=== PATIENT | female | born 1935 | race Caucasian/White ===

== ENCOUNTER 2018-05-23 08:25 | Emergency (ER) | payer MEDICARE ==
[2018-05-23 08:51] VITALS: RESP 18
[2018-05-23 09:06] LABS: Glucose,Whole Blood 166 mg/dL (75-99)
[2018-05-23 09:35] LABS: Basophils % (A) 0 %; Eosinophils # (A) 0.1 k/uL (0-0.7); Eosinophils % (A) 2 %; HCT 37.8 % (34.0-46.0); HGB 12.6 gm/dL (11.4-16.0); Lymphocytes # (A) 1.2 k/uL (1.0-4.8); Lymphocytes % (A) 20 %; MCH 30.9 pg (25.0-35.0); MCHC 33.3 g/dL (31.0-37.0); MCV 92.9 fL (80.0-100.0); Mean Platelet Volume 7.6; Monocytes # (A) 0.3 k/uL (0-1.0); Monocytes % (A) 5 %; Neutrophils # (A) 4.2 k/uL (1.3-7.7); Neutrophils % (A) 71 %; Platelet Count 272 k/uL (150-450); RBC 4.07 m/uL (3.80-5.40); RDW 13.5 % (11.5-15.5); WBC 5.9 k/uL (3.8-10.6)
[2018-05-23 09:50] LABS: Appearance,Urine Cloudy (Clear); Bacteria,Urine Many /hpf; Bilirubin,Urine Negative (Negative); Blood,Urine Negative (Negative); Budding Yeast,Urine Occasional /hpf; Color,Urine Light Yellow; Glucose,Urine (UA) 3+ (Negative); Ketones,Urine Negative (Negative); Leukocyte Esterase,Urine Large (Negative); Mucus,Urine Rare /hpf; Nitrite,Urine Positive (Negative); Protein,Urine Negative (Negative); RBC,Urine 6 /hpf (0-5); Specific Gravity,Urine 1.012 (1.001-1.035); Urobilinogen,Urine <2.0 mg/dL (<2.0)
[2018-05-23 09:53] LABS: Albumin 3.8 g/dL (3.5-5.0); Total Bilirubin 0.6 mg/dL (0.2-1.3); Total Protein 6.9 g/dL (6.3-8.2)
[2018-05-23 09:54] LABS: Magnesium 1.8 mg/dL (1.6-2.3); Potassium 5.3 mmol/L (3.5-5.1)
[2018-05-23 09:55] LABS: Creatine Kinase 86 U/L (30-135)
[2018-05-23 10:08] LABS: Creatine Kinase MB 0.9 ng/mL (0.0-2.4); Troponin I <0.012 ng/mL (0.000-0.034)
[2018-05-23 10:11] LABS: INR 0.9 (<1.2); Partial Thromboplastin Time 22.7 sec (22.0-30.0); Prothrombin Time 9.9 sec (9.0-12.0)
--- NOTE | 2018-05-23 10:21 | ED ---
Recheck HPI - General Chief Complaint: Recheck/Abnormal Lab/Rx Stated Complaint: low blood sugar Time Seen by Provider: 05/23/18 08:39 Source: patient, RN notes reviewed, old records reviewed Mode of arrival: EMS Limitations: no limitations - History of Present Illness Initial Comments: Patient is a 83-year-old female who presents emergency department today with daughter with complaints of low blood sugar episode. Patient apparently woke up this morning feeling very shaky complaining of chills and feeling off balance. Patient's called the daughter the daughter arrived. She seemed to have some garbled speech at that time. Inpatient negative spotter called EMS. Upon arrival EMS noted her blood sugar was low at 59. She was given an amp of glucagon. Patient's symptoms garbled speech shakiness and general feeling of well resolved afterwards. She was prescribed feeling generally well. Patient's daughter states that they recently increased her Levemir 30 units at night. She's been feeling this way on waking up a couple times since the increase of her Levemir. She denies any pains at this time. She does have a chronic indwelling Abreu catheter. Daughter also mentions that she's had occasional falls. On she apparently fell in her house. The daughter and the son and again her up. She complains of right knee pain. - Related Data Home Medications Medication Instructions Recorded Confirmed Aspirin EC [Ecotrin Low Dose] 81 mg PO DAILY 01/07/16 05/23/18 Celecoxib 200 mg PO [id number] 01/07/16 05/23/18 Indapamide [Lozol] 2.5 mg PO MOWEFR 01/07/16 05/23/18 Insulin Detemir [Levemir Flextouch] 30 units SQ HS 01/07/16 05/23/18 Metoprolol Tartrate 50 mg PO BID 01/07/16 05/23/18 Potassium Chloride ER [K-Dur 20] 20 meq PO DAILY 01/07/16 05/23/18 Raloxifene HCl 60 mg PO DAILY 01/07/16 05/23/18 Simvastatin 40 mg PO DAILY 01/07/16 05/23/18 glipiZIDE [Glipizide Xl] 10 mg PO AC-BID 01/07/16 05/23/18 metFORMIN HCL [Metformin HCl ER] 1,500 mg PO W/SUPPER 01/07/16 05/23/18 Previous Rx's Medication Instructions Recorded Cephalexin [Keflex] 500 mg PO Q6HR #28 cap 05/23/18 Allergies Allergy/AdvReac Type Severity Reaction Status Date / Time benazepril Allergy Severe Anaphylaxis Verified 05/23/18 08:59 Review of Systems ROS Statement: Those systems with pertinent positive or pertinent negative responses have been documented in the HPI. ROS Other: All systems not noted in ROS Statement are negative. Past Medical History Past Medical History: Diabetes Mellitus, Hyperlipidemia, Hypertension Additional Past Medical History / Comment(s): chronic abreu cath History of Any Multi-Drug Resistant Organisms: None Reported Past Surgical History: Bladder Surgery, Hysterectomy Past Psychological History: No Psychological Hx Reported Smoking Status: Never smoker Past Alcohol Use History: None Reported Past Drug Use History: None Reported General Exam - General Exam Comments Initial Comments: Well-appearing alert and oriented 83-year-old female. No distress. Limitations: no limitations General appearance: alert, in no apparent distress Head exam: Present: atraumatic, normocephalic, normal inspection Eye exam: Present: normal appearance, PERRL, EOMI. Absent: scleral icterus, conjunctival injection, periorbital swelling ENT exam: Present: normal exam, mucous membranes moist Neck exam: Present: normal inspection Respiratory exam: Present: normal lung sounds bilaterally. Absent: respiratory distress, wheezes, rales, rhonchi, stridor Cardiovascular Exam: Present: regular rate, normal rhythm, normal heart sounds. Absent: systolic murmur, diastolic murmur, rubs, gallop, clicks GI/Abdominal exam: Present: soft, normal bowel sounds. Absent: distended, tenderness, guarding, rebound, rigid External exam: Present: other (Indwelling Abreu catheter. She's had this for over 5 years. She has a leg bag.) Extremities exam: Present: normal inspection, full ROM, normal capillary refill. Absent: tenderness, pedal edema, joint swelling, calf tenderness Back exam: Present: normal inspection Neurological exam: Present: alert Expanded Patient oriented to: Present: person, place, time Speech: Present: fluid speech Cranial nerves: EOM's Intact: Normal Cerebellar function: Finger to Nose: Normal Upper motor neuron: Pronator Drift: Normal Sensory exam: Upper Extremity Light Touch: Normal, Lower Extremity Light Touch: Normal Motor strength exam: RUE: 5, LUE: 5, RLE: 5, LLE: 5 Eye Response: (4) open spontaneously Motor Response: (6) obeys commands Verbal Response: (5) oriented [place] Total: 15 Psychiatric exam: Present: normal affect, normal mood Skin exam: Present: warm, dry, intact, normal color. Absent: rash Course Vital Signs 05/23/18 08:41 Temperature 98.0 F Pulse Rate 100 Respiratory 18 Rate Blood Pressure 140/96 O2 Sat by Pulse 93 L Oximetry Medical Decision Making - Medical Decision Making Is 89-year-old female presents emergency Department with an episode of low blood sugar. Also states she's had a few falls in the past few weeks. At this time Patient has no neurological deficits otherwise appears well after receiving an amp of glucagon IV. Patient complains of no pain. Due to frequent falls a did do some further lab work. Checking white count and joint panels. She does have a chronic indwelling Abreu catheter that was changed [address] León's office. She does have evidence of urinary tract infection. Positive nitrates and 22 white blood cells. Her Abreu catheter was removed and new one was placed. Patient will be started on Keflex at this time. I did discuss with a low blood sugar and Patient recently increased her Levemir to 30 units at bedtime. Discussed putting her. Patient back to 20 units at bedtime until she can follow-up with Dr. Freeman. We don't Patient have further hypoglycemic episodes upon awakening. I discussed with the Patient frequent small healthy snacks. Her chest x-ray was reviewed and normal. All of her of her tests were reviewed and normal. Discussed also with the Patient that she should be ambulated a walker at all times. Her daughter states that she is embarrassed use her walker. This was reiterated to the Patient the importance of safety. Patient at this time case was discussed with Dr. Maria. He agreed with the treatment plan tinted discharge the Patient with close follow-up. Patient will be discharged with Keflex, advised use her walker as well as following up with PCP. Questions answered and return parameters were discussed. - Lab Data Result diagrams: 05/23/18 09:20 05/23/18 09:20 Lab Results 05/23/18 05/23/18 05/23/18 Range/Units 09:03 09:20 09:20 WBC 5.9 (3.8-10.6) k/uL RBC 4.07 (3.80-5.40) m/uL Hgb 12.6 (11.4-16.0) gm/dL Hct 37.8 (34.0-46.0) % MCV 92.9 (80.0-100.0) fL MCH 30.9 (25.0-35.0) pg MCHC 33.3 (31.0-37.0) g/dL RDW 13.5 (11.5-15.5) % Plt Count 272 (150-450) k/uL Neutrophils % 71 % Lymphocytes % 20 % Monocytes % 5 % Eosinophils % 2 % Basophils % 0 % Neutrophils # 4.2 (1.3-7.7) k/uL Lymphocytes # 1.2 (1.0-4.8) k/uL Monocytes # 0.3 (0-1.0) k/uL Eosinophils # 0.1 (0-0.7) k/uL Basophils # 0.0 (0-0.2) k/uL PT (9.0-12.0) sec INR (<1.2) APTT (22.0-30.0) sec Sodium (137-145) mmol/L Potassium (3.5-5.1) mmol/L Chloride (98-107) mmol/L Carbon Dioxide (22-30) mmol/L Anion Gap mmol/L BUN (7-17) mg/dL Creatinine (0.52-1.04) mg/dL Est GFR (CKD-EPI)AfAm (>60 ml/min/1.73 sqM) Est GFR (CKD-EPI)NonAf (>60 ml/min/1.73 sqM) Glucose (74-99) mg/dL POC Glucose (mg/dL) 166 H (75-99) mg/dL POC Glu Deli Cook ID Mikeanita Corinne Calcium (8.4-10.2) mg/dL Magnesium (1.6-2.3) mg/dL Total Bilirubin (0.2-1.3) mg/dL AST (14-36) U/L ALT (9-52) U/L Alkaline Phosphatase (38-126) U/L Total Creatine Kinase 86 (30-135) U/L CK-MB (CK-2) 0.9 (0.0-2.4) ng/mL CK-MB (CK-2) Rel Index 1.0 Troponin I <0.012 (0.000-0.034) ng/mL Total Protein (6.3-8.2) g/dL Albumin (3.5-5.0) g/dL Urine Color Urine Appearance (Clear) Urine pH (5.0-8.0) Ur Specific Adger (1.001-1.035) Urine Protein (Negative) Urine Glucose (UA) (Negative) Urine Ketones (Negative) Urine Blood (Negative) Urine Nitrite (Negative) Urine Bilirubin (Negative) Urine Urobilinogen (<2.0) mg/dL Ur Leukocyte Esterase (Negative) Urine RBC (0-5) /hpf Urine WBC (0-5) /hpf Urine Bacteria (None) /hpf Urine Mucus (None) /hpf Urine Yeast (Budding) (None) /hpf 05/23/18 05/23/18 05/23/18 Range/Units 09:20 09:20 09:20 WBC (3.8-10.6) k/uL RBC (3.80-5.40) m/uL Hgb (11.4-16.0) gm/dL Hct (34.0-46.0) % MCV (80.0-100.0) fL MCH (25.0-35.0) pg MCHC (31.0-37.0) g/dL RDW (11.5-15.5) % Plt Count (150-450) k/uL Neutrophils % % Lymphocytes % % Monocytes % % Eosinophils % % Basophils % % Neutrophils # (1.3-7.7) k/uL Lymphocytes # (1.0-4.8) k/uL Monocytes # (0-1.0) k/uL Eosinophils # (0-0.7) k/uL Basophils # (0-0.2) k/uL PT 9.9 (9.0-12.0) sec INR 0.9 (<1.2) APTT 22.7 (22.0-30.0) sec Sodium 140 (137-145) mmol/L Potassium 5.3 H (3.5-5.1) mmol/L Chloride 111 H (98-107) mmol/L Carbon Dioxide 21 L (22-30) mmol/L Anion Gap 8 mmol/L BUN 20 H (7-17) mg/dL Creatinine 0.82 (0.52-1.04) mg/dL Est GFR (CKD-EPI)AfAm 76 (>60 ml/min/1.73 sqM) Est GFR (CKD-EPI)NonAf 66 (>60 ml/min/1.73 sqM) Glucose 162 H (74-99) mg/dL POC Glucose (mg/dL) (75-99) mg/dL POC Glu Deli Cook ID Calcium 9.0 (8.4-10.2) mg/dL Magnesium 1.8 (1.6-2.3) mg/dL Total Bilirubin 0.6 (0.2-1.3) mg/dL AST 24 (14-36) U/L ALT 18 (9-52) U/L Alkaline Phosphatase 56 (38-126) U/L Total Creatine Kinase (30-135) U/L CK-MB (CK-2) (0.0-2.4) ng/mL CK-MB (CK-2) Rel Index Troponin I (0.000-0.034) ng/mL Total Protein 6.9 (6.3-8.2) g/dL Albumin 3.8 (3.5-5.0) g/dL Urine Color Light Yellow Urine Appearance Cloudy H (Clear) Urine pH 5.0 (5.0-8.0) Ur Specific Adger 1.012 (1.001-1.035) Urine Protein Negative (Negative) Urine Glucose (UA) 3+ H (Negative) Urine Ketones Negative (Negative) Urine Blood Negative (Negative) Urine Nitrite Positive H (Negative) Urine Bilirubin Negative (Negative) Urine Urobilinogen <2.0 (<2.0) mg/dL Ur Leukocyte Esterase Large H (Negative) Urine RBC 6 H (0-5) /hpf Urine WBC 22 H (0-5) /hpf Urine Bacteria Many H (None) /hpf Urine Mucus Rare H (None) /hpf Urine Yeast (Budding) Occasional H (None) /hpf 05/23/18 10:52 EKG performed at 1040 920 sinus rhythm with anterior fascicular. Minimal voltage criteria for LVH. Cannot rule out inferior infarct. Inferior infarct age undetermined. Abnormal EKG noted. Ventricular rate is 80 bpm. MO interval is 176 most seconds. QRS duration 80 ms. QTQTC's received 2/413 ms. - Radiology Data Radiology results: report reviewed Chest x-ray shows chronic changes without any acute process. Disposition Clinical Impression: UTI (urinary tract infection), Hypoglycemia, Falls Disposition: HOME SELF-CARE Condition: Good Instructions: Hypoglycemia in a Person with Diabetes (ED), Urinary Tract Infection in Women (ED) Additional Instructions: Patient should decrease her Levemir dose 20 units at bedtime. Take antibiotics as prescribed until we have a positive urine culture. Follow-up with your urologist is normal for Abreu cath replacement. Patient should return to the emergency department if any alarming signs or symptoms occur. Again as we discussed please use her walker at all times with ambulation. He do not want to risk falling and causing further injuries. Prescriptions: Cephalexin [Keflex] 500 mg PO Q6HR #28 cap Is patient prescribed a controlled substance at d/c from ED?: No Referrals: Frankie Freeman DO [Primary Care Provider] - 1-2 days Time of Disposition: 11:28
--- NOTE | 2018-05-23 10:37 | XR ---
EXAMINATION TYPE: XR chest 2V DATE OF EXAM: 05/23/2018 COMPARISON: NONE HISTORY: Altered mental status and hypoglycemia per technologist. Chest pain per order. TECHNIQUE: Frontal and lateral views of the chest are obtained. FINDINGS: Elevation and eventration anterior aspect right hemidiaphragm is noted. There is chronic pa renchymal change without suspicious focal air space opacity, pleural effusion, or pneumothorax seen. The cardiac silhouette size is within normal limits with atherosclerotic change in aortic knob. Th e osseous structures are demineralized. Multilevel spurring and disc space narrowing centered in the upper lumbar spine is present. IMPRESSION: Chronic changes without acute pulmonary process.
--- NOTE | 2018-05-23 10:40 | XR ---
EXAMINATION TYPE: XR knee complete RT DATE OF EXAM: 05/23/2018 CLINICAL HISTORY: Fall injury 5 days ago with pain TECHNIQUE: Three views of the right knee are obtained. COMPARISON: None. FINDINGS: Demineralization is present. There is no acute fracture/dislocation evident in RIGHT knee. There is mild to moderate tricompartment joint space loss with relative sparing of lateral tibiofemo ral compartment. Mild to moderate spurring patellofemoral compartment is seen. The overlying soft tis crista appears unremarkable. IMPRESSION: There is no acute fracture or dislocation in the right knee.
[2018-05-23 11:54] VITALS: BP 125/82; PULSE 103; TEMP 98.2
== END 2018-05-23 12:11 | disposition home or self-care (01) ==
LOC: EC 08:25
DX: E11.649 Type 2 diabetes mellitus with hypoglycemia without coma (principal); N39.0 Urinary tract infection, site not specified; E78.5 Hyperlipidemia, unspecified; I10 Essential (primary) hypertension; Z79.4 Long term (current) use of insulin; Z79.82 Long term (current) use of aspirin; Z79.899 Other long term (current) drug therapy; Z88.8 Allergy status to other drugs, medicaments and biological substances; R29.6 Repeated falls; Z91.81 History of falling
CPT/HCPCS: 36415; 51702; 71046; 80053; 81001; 82550; 82553; 83735; 84484; 85025; 85610; 85730; 87077; 87086; 87186; 93005; 99285

== ENCOUNTER → 2019-07-05 | Outpatient (CLI) | payer MEDICARE | END | disposition home or self-care (01) | LOC: LABWHC1 12:39 | PROVIDERS: ATTEND Dermatology | DX: D48.5 Neoplasm of uncertain behavior of skin (principal) | CPT/HCPCS: 36415; 82955 ==

== ENCOUNTER 2020-09-07 14:32 | Observation (INO) | payer MEDICARE ==
[2020-09-07] MEDS ORDERED: SODIUM CHLORIDE 0.9% 500 ML 500 ML IV STA (15:13)
--- NOTE | 2020-09-07 15:19 | ED ---
Weakness HPI - General Source: patient, family (son), EMS, RN notes reviewed Mode of arrival: EMS - History of Present Illness MD Complaint: generalized weakness, difficulty walking -: hour(s) (7, since waking at 0800) Location: generalized Associated Symptoms: headaches (frontal), nausea/vomiting <Efe Hopkins - Last Filed: 09/07/20 17:35> <Karlene Galicia - Last Filed: 09/09/20 12:50> - General Chief complaint: Weakness Stated complaint: Weakness, Confusion, Vomiting Time Seen by Provider: 09/07/20 14:52 - History of Present Illness Initial comments: 85-year-old white female presents to the emergency room with her son. Son states that he received a phone call from his father this morning about 8:00 stating that his mom was confused and weak. Son states he seen her yesterday and she was fine without any illness. Hamburgers for dinner last night and then ice cream before going to bed. States her sugar this morning was around 67 started giving her frosting but patient still is very weak and having difficulty sitting up complaining of a frontal headache. Son states that she did not recognize him and then at 10:00 she started to vomit, milky in color. Son states was getting her protein drink along with frosting which may be what she was vomiting.. Son states that she tried to sit up and falling to either side but could not stay sitting upright. Patient currently awake and alert 4, complaining of frontal headache. No focal motor weakness and no complaints of nausea. (Efe Hopkins) - Related Data Home Medications Medication Instructions Recorded Confirmed Aspirin EC [Ecotrin Low Dose] 81 mg PO DAILY 01/07/16 09/07/20 Celecoxib 200 mg PO DAILY 01/07/16 09/07/20 Indapamide [Lozol] 2.5 mg PO MOWEFR 01/07/16 09/07/20 Insulin Detemir [Levemir Flextouch] 20 units SQ DAILY 01/07/16 09/07/20 Metoprolol Tartrate 50 mg PO BID 01/07/16 09/07/20 Raloxifene HCl 60 mg PO DAILY 01/07/16 09/07/20 Simvastatin 40 mg PO DAILY 01/07/16 09/07/20 glipiZIDE [Glipizide Xl] 10 mg PO BID 01/07/16 09/07/20 metFORMIN HCL [Metformin HCl ER] 1,500 mg PO W/SUPPER 01/07/16 09/07/20 Acetaminophen [Tylenol Extra 500 mg PO DAILY 09/07/20 09/07/20 Strength] amLODIPine [Norvasc] 5 mg PO DAILY 09/07/20 09/07/20 Allergies Allergy/AdvReac Type Severity Reaction Status Date / Time benazepril Allergy Severe Anaphylaxis Verified 09/07/20 16:59 Review of Systems ROS Other: All systems not noted in ROS Statement are negative. <Efe Hopkins - Last Filed: 09/07/20 17:35> ROS Other: All systems not noted in ROS Statement are negative. <Karlene Galicia - Last Filed: 09/09/20 12:50> ROS Statement: Those systems with pertinent positive or pertinent negative responses have been documented in the HPI. Past Medical History Past Medical History: Diabetes Mellitus, Hyperlipidemia, Hypertension Additional Past Medical History / Comment(s): chronic abreu cath History of Any Multi-Drug Resistant Organisms: MRSA Date of last positivie culture/infection: 07/05/19 MDRO Source:: MRSA ABDOMEN Past Surgical History: Bladder Surgery, Hysterectomy Past Psychological History: No Psychological Hx Reported Smoking Status: Never smoker Past Alcohol Use History: None Reported Past Drug Use History: None Reported <Efe Hopkins - Last Filed: 09/07/20 17:35> - Past Family History Mother Family Medical History: CVA/TIA Additional Family Medical History / Comment(s): Mother had her first cva in her 30s. She lived to be 61 yrs old. Father Family Medical History: No Reported History Additional Family Medical History / Comment(s): Father was healthy and lived into his mid 80s. <Karlene Galicia - Last Filed: 09/09/20 12:50> General Exam General appearance: alert, other (slow to respond, making jokes with son and staff) Head exam: Present: atraumatic, normocephalic, normal inspection Eye exam: Present: normal appearance, PERRL, EOMI. Absent: scleral icterus, conjunctival injection, periorbital swelling ENT exam: Present: normal exam, normal oropharynx, mucous membranes dry Neck exam: Present: normal inspection, full ROM. Absent: tenderness, meningismus, lymphadenopathy, thyromegaly Respiratory exam: Present: normal lung sounds bilaterally, decreased breath sounds (left base). Absent: respiratory distress, wheezes, rales, rhonchi, stridor Cardiovascular Exam: Present: regular rate, normal rhythm, normal heart sounds. Absent: systolic murmur, diastolic murmur, rubs, gallop, clicks GI/Abdominal exam: Present: soft, normal bowel sounds. Absent: distended, tenderness, guarding, rebound, rigid, mass External exam: Present: other (indwelling abreu catheter ) Extremities exam: Present: normal inspection, full ROM, normal capillary refill. Absent: tenderness, pedal edema, joint swelling, calf tenderness Back exam: Present: full ROM. Absent: tenderness, CVA tenderness (R), CVA tenderness (L) Neurological exam: Present: alert, oriented X3, CN II-XII intact Psychiatric exam: Present: normal affect, normal mood Skin exam: Present: warm, dry, intact, normal color. Absent: rash <Efe Hopkins - Last Filed: 09/07/20 17:35> Course Vital Signs 09/07/20 09/07/20 09/07/20 14:39 16:41 18:40 Temperature 98.8 F Pulse Rate 81 86 94 Respiratory 18 18 18 Rate Blood Pressure 194/78 154/80 180/69 O2 Sat by Pulse 96 97 96 Oximetry 09/07/20 09/08/20 09/08/20 22:30 04:40 07:26 Temperature 97.6 F 97.0 F L Pulse Rate 80 82 81 Respiratory 16 18 18 Rate Blood Pressure 135/65 144/92 127/99 O2 Sat by Pulse 97 100 96 Oximetry 09/08/20 09/08/20 15:02 17:00 Temperature 97.8 F 98.7 F Pulse Rate 95 98 Respiratory 18 18 Rate Blood Pressure 124/94 140/87 O2 Sat by Pulse 97 94 L Oximetry EKG Findings - EKG Results: EKG: sinus rhythm (Ventricular rate of 79, MT interval 0.17, QRS of 0.98, QTc of 0.421), not changed from: (05/23/2018) <Efe Hopkins - Last Filed: 09/07/20 17:35> Medical Decision Making - Lab Data Result diagrams: 09/07/20 15:23 09/07/20 15:23 <Efe Hopkins - Last Filed: 09/07/20 17:35> - Lab Data Result diagrams: 09/09/20 11:16 09/09/20 11:16 <Karlene Galicia - Last Filed: 09/09/20 12:50> - Medical Decision Making Patient alert and oriented 4 at this time. Blood glucose to 122. Patient continues to have a frontal headache. Has been taking Keflex for her UTI but has failed outpatient therapy. CT negative for bleed, no midline shift and no masses. Case discussed with Dr. Galicia, will admit patient to Dr. Delcid with josephine rology on consult for the altered mental status and ataxia today, failed outpatient treatment for urinary tract infection. (Efe Hopkins) I was available for consultation in the emergency department. The history and physical exam were done by the midlevel provider. I was consulted for this patients care. I reviewed the case with the midlevel provider and based on their presentation of the patient, I agree with the assessment, medical decision making and plan of care as documented. Chart was dictated using [employer] dictation software. Attempts were made to correct any dictation errors however some typographical errors may persist. Patient was seen during a national state of emergency due to the Covid-19 pandemic. (Karlene Galicia) - Lab Data Lab Results 09/07/20 09/07/20 09/07/20 Range/Units 15:23 15:23 15:23 WBC 9.5 (3.8-10.6) k/uL RBC 4.21 (3.80-5.40) m/uL Hgb 12.4 (11.4-16.0) gm/dL Hct 37.8 (34.0-46.0) % MCV 89.9 (80.0-100.0) fL MCH 29.5 (25.0-35.0) pg MCHC 32.8 (31.0-37.0) g/dL RDW 13.0 (11.5-15.5) % Plt Count 267 (150-450) k/uL MPV 7.8 Neutrophils % 82 % Lymphocytes % 10 % Monocytes % 5 % Eosinophils % 1 % Basophils % 0 % Neutrophils # 7.8 H (1.3-7.7) k/uL Lymphocytes # 1.0 (1.0-4.8) k/uL Monocytes # 0.5 (0-1.0) k/uL Eosinophils # 0.1 (0-0.7) k/uL Basophils # 0.0 (0-0.2) k/uL PT 10.2 (9.0-12.0) sec INR 0.9 (<1.2) APTT 20.2 L (22.0-30.0) sec Sodium (137-145) mmol/L Potassium (3.5-5.1) mmol/L Chloride (98-107) mmol/L Carbon Dioxide (22-30) mmol/L Anion Gap mmol/L BUN (7-17) mg/dL Creatinine (0.52-1.04) mg/dL Est GFR (CKD-EPI)AfAm (>60 ml/min/1.73 sqM) Est GFR (CKD-EPI)NonAf (>60 ml/min/1.73 sqM) Glucose (74-99) mg/dL Estimated Ave Glu mg/dL Hemoglobin A1c (4.0-6.0) % Plasma Lactic Acid Kelvin (0.7-2.0) mmol/L Calcium (8.4-10.2) mg/dL Total Bilirubin (0.2-1.3) mg/dL AST (14-36) U/L ALT (4-34) U/L Alkaline Phosphatase (38-126) U/L Troponin I (0.000-0.034) ng/mL Total Protein (6.3-8.2) g/dL Albumin (3.5-5.0) g/dL Urine Color Light Yellow Urine Appearance Cloudy H (Clear) Urine pH 5.0 (5.0-8.0) Ur Specific [place] 1.017 (1.001-1.035) Urine Protein Trace H (Negative) Urine Glucose (UA) Negative (Negative) Urine Ketones Negative (Negative) Urine Blood Trace H (Negative) Urine Nitrite Positive H (Negative) Urine Bilirubin Negative (Negative) Urine Urobilinogen <2.0 (<2.0) mg/dL Ur Leukocyte Esterase Small H (Negative) Urine RBC 3 (0-5) /hpf Urine WBC 3 (0-5) /hpf Ur Squamous Epith Cells <1 (0-4) /hpf Urine Bacteria Many H (None) /hpf Hyaline Casts 1 (0-2) /lpf Urine Mucus Few H (None) /hpf Urine Yeast (Budding) Occasional H (None) /hpf Influenza Type A (PCR) (Not Detectd) Influenza Type B (PCR) (Not Detectd) RSV (PCR) (Not Detectd) SARS-CoV-2 (PCR) (Not Detectd) 09/07/20 09/07/20 09/07/20 Range/Units 15:23 15:23 15:23 WBC (3.8-10.6) k/uL RBC (3.80-5.40) m/uL Hgb (11.4-16.0) gm/dL Hct (34.0-46.0) % MCV (80.0-100.0) fL MCH (25.0-35.0) pg MCHC (31.0-37.0) g/dL RDW (11.5-15.5) % Plt Count (150-450) k/uL MPV Neutrophils % % Lymphocytes % % Monocytes % % Eosinophils % % Basophils % % Neutrophils # (1.3-7.7) k/uL Lymphocytes # (1.0-4.8) k/uL Monocytes # (0-1.0) k/uL Eosinophils # (0-0.7) k/uL Basophils # (0-0.2) k/uL PT (9.0-12.0) sec INR (<1.2) APTT (22.0-30.0) sec Sodium 139 (137-145) mmol/L Potassium 4.5 (3.5-5.1) mmol/L Chloride 107 (98-107) mmol/L Carbon Dioxide 22 (22-30) mmol/L Anion Gap 10 mmol/L BUN 27 H (7-17) mg/dL Creatinine 0.59 (0.52-1.04) mg/dL Est GFR (CKD-EPI)AfAm >90 (>60 ml/min/1.73 sqM) Est GFR (CKD-EPI)NonAf 83 (>60 ml/min/1.73 sqM) Glucose 122 H (74-99) mg/dL Estimated Ave Glu mg/dL Hemoglobin A1c (4.0-6.0) % Plasma Lactic Acid Kelvin 1.0 (0.7-2.0) mmol/L Calcium 9.7 (8.4-10.2) mg/dL Total Bilirubin 0.3 (0.2-1.3) mg/dL AST 24 (14-36) U/L ALT 8 (4-34) U/L Alkaline Phosphatase 91 (38-126) U/L Troponin I 0.013 (0.000-0.034) ng/mL Total Protein 6.2 L (6.3-8.2) g/dL Albumin 3.6 (3.5-5.0) g/dL Urine Color Urine Appearance (Clear) Urine pH (5.0-8.0) Ur Specific [place] (1.001-1.035) Urine Protein (Negative) Urine Glucose (UA) (Negative) Urine Ketones (Negative) Urine Blood (Negative) Urine Nitrite (Negative) Urine Bilirubin (Negative) Urine Urobilinogen (<2.0) mg/dL Ur Leukocyte Esterase (Negative) Urine RBC (0-5) /hpf Urine WBC (0-5) /hpf Ur Squamous Epith Cells (0-4) /hpf Urine Bacteria (None) /hpf Hyaline Casts (0-2) /lpf Urine Mucus (None) /hpf Urine Yeast (Budding) (None) /hpf Influenza Type A (PCR) (Not Detectd) Influenza Type B (PCR) (Not Detectd) RSV (PCR) (Not Detectd) SARS-CoV-2 (PCR) (Not Detectd) 09/07/20 09/07/20 Range/Units 15:23 16:40 WBC (3.8-10.6) k/uL RBC (3.80-5.40) m/uL Hgb (11.4-16.0) gm/dL Hct (34.0-46.0) % MCV (80.0-100.0) fL MCH (25.0-35.0) pg MCHC (31.0-37.0) g/dL RDW (11.5-15.5) % Plt Count (150-450) k/uL MPV Neutrophils % % Lymphocytes % % Monocytes % % Eosinophils % % Basophils % % Neutrophils # (1.3-7.7) k/uL Lymphocytes # (1.0-4.8) k/uL Monocytes # (0-1.0) k/uL Eosinophils # (0-0.7) k/uL Basophils # (0-0.2) k/uL PT (9.0-12.0) sec INR (<1.2) APTT (22.0-30.0) sec Sodium (137-145) mmol/L Potassium (3.5-5.1) mmol/L Chloride (98-107) mmol/L Carbon Dioxide (22-30) mmol/L Anion Gap mmol/L BUN (7-17) mg/dL Creatinine (0.52-1.04) mg/dL Est GFR (CKD-EPI)AfAm (>60 ml/min/1.73 sqM) Est GFR (CKD-EPI)NonAf (>60 ml/min/1.73 sqM) Glucose (74-99) mg/dL Estimated Ave Glu mg/dL 165.68 Hemoglobin A1c 7.4 H (4.0-6.0) % Plasma Lactic Acid Kelvin (0.7-2.0) mmol/L Calcium (8.4-10.2) mg/dL Total Bilirubin (0.2-1.3) mg/dL AST (14-36) U/L ALT (4-34) U/L Alkaline Phosphatase (38-126) U/L Troponin I (0.000-0.034) ng/mL Total Protein (6.3-8.2) g/dL Albumin (3.5-5.0) g/dL Urine Color Urine Appearance (Clear) Urine pH (5.0-8.0) Ur Specific [place] (1.001-1.035) Urine Protein (Negative) Urine Glucose (UA) (Negative) Urine Ketones (Negative) Urine Blood (Negative) Urine Nitrite (Negative) Urine Bilirubin (Negative) Urine Urobilinogen (<2.0) mg/dL Ur Leukocyte Esterase (Negative) Urine RBC (0-5) /hpf Urine WBC (0-5) /hpf Ur Squamous Epith Cells (0-4) /hpf Urine Bacteria (None) /hpf Hyaline Casts (0-2) /lpf Urine Mucus (None) /hpf Urine Yeast (Budding) (None) /hpf Influenza Type A (PCR) Not Detected (Not Detectd) Influenza Type B (PCR) Not Detected (Not Detectd) RSV (PCR) Not Detected (Not Detectd) SARS-CoV-2 (PCR) Not Detected (Not Detectd) Disposition Decision Date: 09/07/20 Decision Time: 17:00 <Efe Hopkins - Last Filed: 09/07/20 17:35> <Karlene Galicia - Last Filed: 09/09/20 12:50> Clinical Impression: Failure of outpatient treatment, TIA (transient ischemic attack), Hypoglycemia Disposition: ADMITTED IP TO THIS HOSP Condition: Fair
[2020-09-07 15:32] LABS: Basophils % (A) 0 %; Eosinophils # (A) 0.1 k/uL (0-0.7); Eosinophils % (A) 1 %; HCT 37.8 % (34.0-46.0); HGB 12.4 gm/dL (11.4-16.0); Lymphocytes % (A) 10 %; MCH 29.5 pg (25.0-35.0); MCHC 32.8 g/dL (31.0-37.0); MCV 89.9 fL (80.0-100.0); Mean Platelet Volume 7.8; Monocytes # (A) 0.5 k/uL (0-1.0); Monocytes % (A) 5 %; Neutrophils # (A) 7.8 k/uL (1.3-7.7); Neutrophils % (A) 82 %; Platelet Count 267 k/uL (150-450); RBC 4.21 m/uL (3.80-5.40); WBC 9.5 k/uL (3.8-10.6)
[2020-09-07 15:41] LABS: Appearance,Urine Cloudy (Clear); Bacteria,Urine Many /hpf; Bilirubin,Urine Negative (Negative); Blood,Urine Trace (Negative); Budding Yeast,Urine Occasional /hpf; Color,Urine Light Yellow; Glucose,Urine (UA) Negative (Negative); Hyaline Casts,Urine 1 /lpf (0-2); Ketones,Urine Negative (Negative); Leukocyte Esterase,Urine Small (Negative); Mucus,Urine Few /hpf; Nitrite,Urine Positive (Negative); Protein,Urine Trace (Negative); RBC,Urine 3 /hpf (0-5); Specific Gravity,Urine 1.017 (1.001-1.035); Squamous Epithelial Cell,Urine <1 /hpf (0-4); Urobilinogen,Urine <2.0 mg/dL (<2.0); WBC,Urine 3 /hpf (0-5)
[2020-09-07 15:42] LABS: ALT 8 U/L (4-34); AST 24 U/L (14-36); African American GFR (CKD) >90 (>60 ml/min/1.73 sqM); Albumin 3.6 g/dL (3.5-5.0); Alkaline Phosphatase 91 U/L (38-126); Anion Gap 10 mmol/L; Blood Urea Nitrogen 27 mg/dL (7-17); Calcium 9.7 mg/dL (8.4-10.2); Carbon Dioxide 22 mmol/L (22-30); Chloride 107 mmol/L (98-107); Glucose 122 mg/dL (74-99); Non-African American GFR(CKD) 83 (>60 ml/min/1.73 sqM); Potassium 4.5 mmol/L (3.5-5.1); Sodium 139 mmol/L (137-145); Total Bilirubin 0.3 mg/dL (0.2-1.3); Total Protein 6.2 g/dL (6.3-8.2)
[2020-09-07 15:54] LABS: INR 0.9 (<1.2); Partial Thromboplastin Time 20.2 sec (22.0-30.0); Prothrombin Time 10.2 sec (9.0-12.0)
--- NOTE | 2020-09-07 16:12 | CT ---
EXAMINATION TYPE: CT brain wo con DATE OF EXAM: 09/07/2020 COMPARISON: None HISTORY: Weakness, vomiting. Pt had to be rescanned due to motion. CT DLP: 2342.4 mGycm Automated exposure control for dose reduction was used. There is cerebral cortical atrophy. There is hypodensity in the periventricular white matter. There i s no mass effect nor midline shift. There is no sign of intracranial hemorrhage. Calvarium is intact. The skull base is intact. There is normal aeration of the mastoid sinuses. IMPRESSION: Cerebral atrophy and chronic small vessel ischemia. No acute intracranial abnormality.
--- NOTE | 2020-09-07 16:23 | XR ---
EXAMINATION TYPE: XR chest 2V DATE OF EXAM: 09/07/2020 COMPARISON: 05/23/2018 HISTORY: Mental status TECHNIQUE: 2 views FINDINGS: There is no heart failure nor confluent pneumonic infiltrate. Costophrenic angles are clear . There are no hilar masses. Thoracic aorta is atheromatous. There is spurring in the thoracic spine. IMPRESSION: No active cardiopulmonary disease. No change.
[2020-09-07] MEDS ORDERED: NALOXONE 0.4 MG/ML 1 ML VIAL IV PRN (16:50)
[2020-09-07] MEDS ORDERED: ACETAMINOPHEN TAB 325 MG TAB PO PRN (16:56)
[2020-09-08] MEDS ORDERED: LORazepam 2 MG/ML INJ IV STA (01:43)
--- NOTE | 2020-09-08 12:55 | P.CNNES ---
History of Present Illness Consult date: 09/08/20 Requesting physician: Efe Hopkins Reason for Consult: TIA History of Present Illness: Patient is a 85-year-old female came to the ER by ambulance yesterday at 2:32 PM. Patient not able to provide any history. Per EMS flow sheet, patient was complaining of weakness, nausea and altered mental status since 7 AM. Patient answered most of the questions appropriately but took her a while to answer. Patient had acute weakness and confusion when she woke up and had 3 episodes of emesis since then. Her blood sugar was slightly low 60. Patient was unable to sit up straight, continues to lean towards the right. Patient was very dizzy when she sits up. Patient's blood pressure was 179/84 pulse rate 103, saturation 95% and blood sugar 158. Vital signs on arrival blood pressure 194/78, pulse rate 81, temperature 98.8. Most recent blood pressure 127/99. CT head showed cerebral atrophy and chronic small vessel ischemia. No acute intracranial abnormality. Chest x-ray showed no active cardiopulmonary disease. EKG normal sinus rhythm, incomplete right bundle branch block, left anterior fascicular block. Moderate voltage criteria for LVH. Patient has diabetes, on glipizide, Celebrex 200 mg daily, aspirin 81 mg, simvastatin 40 mg, amlodipine 5 mg metformin, insulin metoprolol and Raloxifine. Patient very confused, somewhat restless, delirious, not able to provide any history. Patient states that she lives with her father who is 34 or 35 years of age. She thinks herself as 9 years old. Please refer to examination below. Review of Systems Denies headache. ROS unobtainable: due to mental status Past Medical History Past Medical History: Diabetes Mellitus, Hyperlipidemia, Hypertension Additional Past Medical History / Comment(s): chronic abreu cath History of Any Multi-Drug Resistant Organisms: MRSA Date of last positivie culture/infection: 07/05/19 MDRO Source:: MRSA ABDOMEN Past Surgical History: Bladder Surgery, Hysterectomy Past Psychological History: No Psychological Hx Reported Smoking Status: Never smoker Past Alcohol Use History: None Reported Past Drug Use History: None Reported - Past Family History Mother Family Medical History: CVA/TIA Additional Family Medical History / Comment(s): Mother had her first cva in her 30s. She lived to be 61 yrs old. Father Family Medical History: No Reported History Additional Family Medical History / Comment(s): Father was healthy and lived into his mid 80s. Medications and Allergies Home Medications Medication Instructions Recorded Confirmed Type Aspirin EC [Ecotrin Low Dose] 81 mg PO DAILY 01/07/16 09/07/20 History Celecoxib 200 mg PO DAILY 01/07/16 09/07/20 History Indapamide [Lozol] 2.5 mg PO MOWEFR 01/07/16 09/07/20 History Metoprolol Tartrate 50 mg PO BID 01/07/16 09/07/20 History Raloxifene HCl 60 mg PO DAILY 01/07/16 09/07/20 History Simvastatin 40 mg PO DAILY 01/07/16 09/07/20 History amLODIPine [Norvasc] 5 mg PO DAILY 09/07/20 09/07/20 History Acetaminophen Tab [Tylenol] 650 mg PO Q6HR PRN tab 09/09/20 Rx Cefuroxime Axetil [Ceftin] 500 mg PO BID 1 Days #8 tab 09/09/20 Rx INSULIN LISPRO (HumaLOG) [humaLOG] 0 unit SQ ACHS #1 vial 09/09/20 Rx Insulin Detemir (Levemir) [Levemir] 5 unit SQ HS syr 09/09/20 Rx Insulin Detemir (Levemir) [Levemir] 10 unit SQ DAILY@0700 syr 09/09/20 Rx QUEtiapine [SEROquel] 25 mg PO HS #1 tab 09/09/20 Rx Allergies Allergy/AdvReac Type Severity Reaction Status Date / Time benazepril Allergy Severe Anaphylaxis Verified 09/07/20 16:59 Physical Examination - Vital Signs Vital Signs: Vital Signs Temp Pulse Resp BP Pulse Ox 09/08/20 07:26 97.0 F L 81 18 127/99 96 09/08/20 04:40 82 18 144/92 100 09/07/20 22:30 97.6 F 80 16 135/65 97 09/07/20 18:40 94 18 180/69 96 09/07/20 16:41 86 18 154/80 97 09/07/20 14:39 98.8 F 81 18 194/78 96 Intake and Output 09/07/20 09/08/20 09/08/20 22:59 06:59 14:59 Other: Voiding Method Indwelling Catheter On examination patient is an elderly female, who is laying in the bed, slightly restless, trying to get up, not able to get up by herself. Patient knows her name states is "9 years old". States she cannot remember her age. Patient knows that she is in [place] could not tell the city she lives in. She states that she lives in [facility]. She doesn't know what building we are in. Patient could not tell the current month or the year. When I asked about president, states "Oh! that's easy". Then states "can't think of it now". And I give her choices, patient could not recognize Mr. Zaldivar. When I said [place] then, she stated "maybe". Her limited speech appears clear. She states that she lives with her father who is 34 or 35 years of age. Patient has a very prolonged latency time to answer questions. On cranial nerve examination pupils are round and reacting to light, visual gipson are full on confrontation, extraocular muscles are intact. She has mild flattening of the left nasolabial fold but on active testing appeared normal. Tongue protrudes the midline. Palatal elevation is normal, hearing is slightly decreased, shoulder shrug normal. Facial sensations normal. On muscle strength testing patient has weakness of bilateral shoulders, right slightly worse than left. Uncertain if patient has underlying rotator cuff issue or some central cause. Her biceps, triceps and document processor are normal. Strength is normal in the lower limbs. Sensations are equal. Patient appears ataxic for [id number], right more than left. Patient did not cooperate for [id number] testing. Reflexes are 2 in the right upper limb, 1+ in the left upper limb. Knees are 1+ and ankles 1 bilaterally plantars are downgoing. No clonus. Tone and bulk of muscles normal. Gait deferred. On general examination there is no obvious bruit, S1 and S2 audible, abdomen soft nontender. Chest is clear. Peripheral pulses present. No peripheral edema. Results - Laboratory Findings CBC and BMP: 09/09/20 11:16 09/09/20 11:16 Abnormal Lab Findings: Abnormal Labs 09/07/20 09/07/20 09/07/20 15:23 15:23 15:23 Neutrophils # 7.8 H APTT 20.2 L BUN Glucose Total Protein Urine Appearance Cloudy H Urine Protein Trace H Urine Blood Trace H Urine Nitrite Positive H Ur Leukocyte Esterase Small H Urine Bacteria Many H Urine Mucus Few H Urine Yeast (Budding) Occasional H 09/07/20 15:23 Neutrophils # APTT BUN 27 H Glucose 122 H Total Protein 6.2 L Urine Appearance Urine Protein Urine Blood Urine Nitrite Ur Leukocyte Esterase Urine Bacteria Urine Mucus Urine Yeast (Budding) Assessment and Plan Assessment: * Altered mental status, generalized weakness, uncertain cause. On examination patient appears slightly delirious, restless, is alert and awake, but quite disoriented. Patient has possible ataxia for [id number] testing, right more than left, rule out cerebellar CVA. Patient came with mild hypoglycemia with blood glucose of 60. Also has possible UTI * Diabetes * Hypertension * Hyperlipidemia * Probable underlying cognitive impairment Plan: * MRI of the brain rule out CVA. * Patient's last hemoglobin A1c 7.9 on 06/06/2020. * Lipid panel with cholesterol 147, LDL 69, HDL 46 and triglycerides 158. Continue statins. * Carotid Doppler * 2-D echo * Telemetry monitoring * B12, folate, B1, TSH. * Continue aspirin * We will follow.
--- NOTE | 2020-09-08 14:02 | US ---
EXAMINATION TYPE: US carotid duplex BILAT DATE OF EXAM: 09/08/2020 COMPARISON: NONE CLINICAL HISTORY: Possible CVA, weakness. Poor historian EXAM MEASUREMENTS: RIGHT: Peak Systolic Velocity (PSV) cm/sec ----- Right CCA: 68.0 ----- Right ICA: 68.0 ----- Right ECA: 143.6 ICA/CCA ratio: 1.0 RIGHT: End Diastole cm/sec ----- Right CCA: 10.9 ----- Right ICA: 7.6 ----- Right ECA: 9.5 LEFT: Peak Systolic Velocity (PSV) cm/sec ----- Left CCA: 66.9 ----- Left ICA: 96.9 ----- Left ECA: 108.1 ICA/CCA ratio: 1.4 LEFT: End Diastole cm/sec ----- Left CCA: 0.0 ----- Left ICA: 16.7 ----- Left ECA: 0.0 VERTEBRALS (direction of flow): Right Vertebral: Antegrade Left Vertebral: Antegrade Rhythm: Normal Bilateral wall thickening. Plaque seen in bilateral carotids. Elevated right ECA. IMPRESSION: 1. Bilateral atherosclerotic plaque with no significant hemodynamic stenosis. Criteria for Assigning % of Stenosis / Diameter reduction (Estimation based on the indirect measurements of the internal carotid artery velocities (ICA PSV). 1. Normal (no stenosis)=ICA PSV < 125 cm/s: ratio < 2.0: ICA EDV<40 cm/s. 2. Less than 50% stenosis=ICA PSV < 125 cm/s: ratio < 2.0: ICA EDV<40 cm/s. 3. 50 to 69% stenosis=ICA PSV of 125 to 230 cm/s: ration 2.0 ? 4.0: ICA EDV 40-100 cm/s. 4. Greater than 70% stenosis to near occlusion= ICA PSV > 230 cm/s: ratio > 4.0: ICA EDV > 100 cm/s. 5. Near occlusion= ICA PSV velocities may be low or undetectable: variable ratio and ICA EDV. 6. Total occlusion=unable to detect flow.
[2020-09-08] MEDS: ASPIRIN 81 MG PO SCH ×3 (15:19→16:53)
[2020-09-08] MEDS: ATORVASTATIN 20 MG TAB PO SCH ×4 (15:19→16:53)
[2020-09-08 15:53] LABS: Glucose,Whole Blood 161 mg/dL (75-99)
[2020-09-08] MEDS: SODIUM CHLORIDE 0.9% 1,000 ML IV SCH (16:48)
--- NOTE | 2020-09-08 17:12 | P.HPIM ---
History of Present Illness H&P Date: 09/08/20 Chief Complaint: Weakness, confusion, nausea This is an 85-year-old female with past medical history of diabetes mellitus, hypertension, hyperlipidemia, dementia, urinary retention with chronic Abreu catheter last changed August 2020-, UTI, arthritis and multiple other medical issues brought in by EMS with complaints of weakness nausea, vomiting, confusion. ER reports family stated a.m. blood sugar is 67, attempted to give patient frosting, difficulty sitting upright, complaining of frontal headache, milky emesis( possibly her protein drink). Patient did not recognize son. Complained of dizziness, Blood sugar was 60 (EMS), hypertensive with mild tachycardia,, O2 sat 95% on room air. Brain CT reported No acute intracranial abnormality. Chest x-ray reported no active cardiopulmonary disease. EKG normal sinus rhythm, incomplete right bundle branch block, left anterior fascicular block. Patient is a vague historian, alert and oriented to person only-reports she is at home. staff reports patient confused, crawling out of bed/stretcher during the night. Hemat ology, coagulation, chemistry panel is unremarkable with the exception of neutrophil 7.8, APTT 20.2, BUN 27, total protein 6.2. UA reported occasional yeast, many bacteria, 1 hyaline cast, small leukocytes negative bilirubin. Influenza A/B/covid not detected. Afebrile. Review of Systems Review of systems unable to obtain secondary to patient's current mental status. Past Medical History Past Medical History: Diabetes Mellitus, Hyperlipidemia, Hypertension Additional Past Medical History / Comment(s): IDDM type II, decreased cognitive ability over approximately one year/pt fearful of needles/blood/anything that might hurt, urinary retention/chronic abreu catheter past 7 years/changed monthly and last changed in August 2020, incontinence of stool, generalized arthritis, dry cough History of Any Multi-Drug Resistant Organisms: MRSA Date of last positivie culture/infection: 07/05/19 MDRO Source:: MRSA ABDOMEN Past Surgical History: Back Surgery, Bladder Surgery, Hysterectomy Additional Past Surgical History / Comment(s): Cystoscopies/ IDC insertion, colonoscopy, low back surgery when young, periodontal procedures. Past Anesthesia/Blood Transfusion Reactions: No Reported Reaction Smoking Status: Never smoker - Past Family History Mother Family Medical History: CVA/TIA Additional Family Medical History / Comment(s): Mother had her first cva in her 30s. She lived to be 61 yrs old. Father Family Medical History: No Reported History Additional Family Medical History / Comment(s): Father was healthy and lived into his mid 80s. Medications and Allergies Home Medications Medication Instructions Recorded Confirmed Type Aspirin EC [Ecotrin Low Dose] 81 mg PO DAILY 01/07/16 09/07/20 History Celecoxib 200 mg PO DAILY 01/07/16 09/07/20 History Indapamide [Lozol] 2.5 mg PO MOWEFR 01/07/16 09/07/20 History Insulin Detemir [Levemir Flextouch] 20 units SQ DAILY 01/07/16 09/07/20 History Metoprolol Tartrate 50 mg PO BID 01/07/16 09/07/20 History Raloxifene HCl 60 mg PO DAILY 01/07/16 09/07/20 History Simvastatin 40 mg PO DAILY 01/07/16 09/07/20 History glipiZIDE [Glipizide Xl] 10 mg PO BID 01/07/16 09/07/20 History metFORMIN HCL [Metformin HCl ER] 1,500 mg PO W/SUPPER 01/07/16 09/07/20 History Acetaminophen [Tylenol Extra 500 mg PO DAILY 09/07/20 09/07/20 History Strength] amLODIPine [Norvasc] 5 mg PO DAILY 09/07/20 09/07/20 History Allergies Allergy/AdvReac Type Severity Reaction Status Date / Time benazepril Allergy Severe Anaphylaxis Verified 09/07/20 16:59 Physical Exam Vitals: Vital Signs Temp Pulse Resp BP Pulse Ox 09/08/20 15:02 97.8 F 95 18 124/94 97 09/08/20 07:26 97.0 F L 81 18 127/99 96 09/08/20 04:40 82 18 144/92 100 09/07/20 22:30 97.6 F 80 16 135/65 97 09/07/20 18:40 94 18 180/69 96 09/07/20 16:41 86 18 154/80 97 Intake and Output 09/08/20 09/08/20 09/08/20 06:59 14:59 22:59 Output Total 550 200 Balance -550 -200 Output: Urine 550 200 Other: Voiding Method Indwelling Catheter Weight 56.699 kg PHYSICAL EXAM: VITAL SIGNS: As above GENERAL: Confused, restless, hospital gown half off, sitting up on stretcher. Slow response to questions. HEENT: Conjunctivae normal. eyes normal. Tongue midline. No facial asymmetry. NECK: No JVD. No thyroid enlargement. No LNs CARDIOVASCULAR: S1, S2 regular.No murmur RESPIRATION: Breath sounds diminished in the bases. No rhonchi or crackles. No bronchial breathing. ABDOMEN: Soft, nontender . No guarding. no masses palpable. No ascites, No hepatosplenomegaly.Bowel sounds heard. LEGS: No edema. no swelling. No calf tenderness PSYCHIATRY: Alert and oriented X1, confused NERVOUS SYSTEM: Ataxic ,Moves all 4 limbs. Diffuse weakness, Strength and sensation grossly intact. Skin: no lesions, warm and dry Lymphatic system. No LN neck axilla. Results CBC & Chem 7: 09/07/20 15:23 09/07/20 15:23 Labs: Abnormal Lab Results - Last 24 Hours (Table) 09/08/20 Range/Units 15:52 POC Glucose (mg/dL) 161 H (75-99) mg/dL Thrombosis Risk Factor Assmnt - Choose All That Apply Any of the Below Risk Factors Present?: Yes Other Risk Factors: Yes Each Risk Factor Represents 3 Points: Age 75 years or older Other congenital or acquired thrombophilia - If yes, enter type in comment: No Thrombosis Risk Factor Assessment Total Risk Factor Score: 3 Thrombosis Risk Factor Assessment Level: Moderate Risk Assessment and Plan Assessment: -Confusion, delirium, altered mental status,Acute metabolic encephalopathy accompanied by generalized weakness, etiology unclear. Diabetes mellitus II, hypoglycemia per EMS and family report Possible recurrent UTI, related to urinary retention, chronic Abreu catheter. Abreu catheter ordered to be changed. Hypertension, uncontrolled on admission Hyperlipidemia Dementia, type unclear, incontinent of urine and bowel movement. Plan: Continue on current medication regime ,monitoring and symptomatic treatment. Continue on aspirin, statin, PPI. Compression stockings. IV fluid hydration Neurology consult in place with recommendations pending. PT/OT/social work consult for potential placement/assistance. Prognosis guarded given multiple complex medical issues. The impression and plan of care has been dictated as directed. : I performed a history and examination of this patient, discussed the same with the dictator. I agree with the dictator's note ,documented as a scribe. Any additional findings or plans will be noted.
[2020-09-08] MEDS: PANTOPRAZOLE 40 MG/10 ML VIAL IVP SCH (17:55)
[2020-09-08 21:28] LABS: Folate, Serum 19.6 ng/mL
[2020-09-09 03:47] LABS: Estimated Average Glucose 165.68; Hemoglobin A1C 7.4 % (4.0-6.0)
[2020-09-09] MEDS: SODIUM CHLORIDE 0.9% 1,000 ML IV SCH ×3 (05:36→22:33)
[2020-09-09] MEDS ORDERED: OLANZapine 10 MG VIAL IM PRN (07:07)
--- NOTE | 2020-09-09 07:58 | ECHOF ---
Referral Reason:Possible CVA, weakness MEASUREMENTS -------- HEIGHT: 157.5 cm WEIGHT: 56.7 kg BP: IVSd: 1.2 cm (0.6 - 1.1) LVIDd: 3.8 cm (3.9 - 5.3) LVPWd: 1.3 cm (0.6 - 1.1) IVSs: 1.5 cm LVIDs: 2.5 cm LVPWs: 1.6 cm LA Diam: 4.0 cm (2.7 - 3.8) Ao Diam: 3.1 cm (2.0 - 3.7) AV Cusp: 2.2 cm (1.5 - 2.6) LA Diam: 3.8 cm (2.7 - 3.8) MV EXCURSION: 10.759 mm (> 18.000) MV EF SLOPE: 41 mm/s (70 - 150) EPSS: 0.4 cm MV E Eliseo: 0.44 m/s MV DecT: 264 ms MV A Eliseo: 1.18 m/s MV E/A Ratio: 0.37 FINDINGS -------- Sinus rhythm. This was a technically adequate study. The left ventricular size is normal. Left ventricular wall thickness is normal. Overall left vent ricular systolic function is normal with, an EF between 55 - 60 %. The right ventricle is normal in size. The left atrium is mildly dilated. The right atrial size is normal. There is mild aortic valve sclerosis. The mitral valve is normal. Mild mitral regurgitation is present. The tricuspid valve appears structurally normal. Mild tricuspid regurgitation present. Right vent ricular systolic pressure is normal at < 35 mmHg. There is no pulmonic regurgitation present. The aortic root size is normal. There is a small, generalized pericardial effusion present. CONCLUSIONS -------- 1. Left ventricular wall thickness is normal. 2. Overall left ventricular systolic function is normal with, an EF between 55 - 60 %. 3. The left atrium is mildly dilated. 4. There is mild aortic valve sclerosis. 5. Mild mitral regurgitation is present. 6. Mild tricuspid regurgitation present. 7. There is a small, generalized pericardial effusion present. GOLD BLOWER: Padmini Dunham RDCS
[2020-09-09] MEDS: ASPIRIN 81 MG PO SCH (07:59)
[2020-09-09] MEDS: PANTOPRAZOLE 40 MG/10 ML VIAL IVP SCH (07:59)
[2020-09-09] MEDS: ATORVASTATIN 20 MG TAB PO SCH (07:59)
[2020-09-09] MEDS ORDERED: amLODIPine 5 MG TAB PO SCH (09:45)
[2020-09-09] MEDS: INSULIN DETEMIR (LEVEMIR) 100 UNIT/ML SYR SQ SCH (10:43)
[2020-09-09] MEDS: METOPROLOL TARTRATE 50 MG TAB PO SCH ×2 (10:43→20:24)
--- NOTE | 2020-09-09 11:13 | P.PN ---
Subjective Progress Note Date: 09/09/20 This is an 85-year-old female with past medical history of diabetes mellitus, hypertension, hyperlipidemia, dementia, urinary retention with chronic Braswell catheter last changed August 2020-, UTI, arthritis and multiple other medical issues brought in by EMS with complaints of weakness nausea, vomiting, conf usion. ER reports family stated a.m. blood sugar is 67, attempted to give patient frosting, difficulty sitting upright, complaining of frontal headache, milky emesis( possibly her protein drink). Patient did not recognize son. Complained of dizziness, Blood sugar was 60 (EMS), hypertensive with mild tachycardia,, O2 sat 95% on room air. Brain CT reported No acute intracranial abnormality. Chest x-ray reported no active cardiopulmonary disease. EKG normal sinus rhythm, incomplete right bun dle branch block, left anterior fascicular block. Patient is a vague historian, alert and oriented to person only-reports she is at home. staff reports patient confused, crawling out of bed/stretcher during the night. Hematology, coagulation, chemistry panel is unremarkable with the exception of neutrophil 7.8, APTT 20.2, BUN 27, total protein 6.2. UA reported occasional yeast, many bacteria, 1 hyaline cast, small leukocytes negative bilirubin. Influenza A/B/covid not detected. Afebrile. 09/09/2020 UA reporting positive nitrate, urine culture ordered. Rocephin to be initiated empirically after culture is collected. 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 Sitting up in bed, eating breakfast, calm. Reports she is in the hospital, but doesn't know why she is here, recognizes Dr. Freeman. Evaluated by neurology with recommendations noted and appreciated. Neuro workup in progress including MRI. Denies chest pain, palpitations or shortness of breath. Afebrile, labs pending. Objective - Vital Signs Vital signs: Vital Signs Temp 97.8 F 09/09/20 07:20 Pulse 86 09/09/20 07:20 Resp 14 09/09/20 07:20 BP 161/76 09/09/20 07:20 Pulse Ox 94 L 09/09/20 07:20 Intake & Output 09/08/20 09/09/20 09/09/20 18:59 06:59 18:59 Intake Total 500 Output Total 750 700 Balance -750 -200 Weight 56.699 kg Intake: Intake, IV Titration 400 Amount Sodium Chloride 0.9% 1, 400 000 ml @ 100 mls/hr IV . Q10H [facility] Rx#:[id number] Oral 100 Output: Urine 750 700 Other: Voiding Method Indwelling Catheter Indwelling Catheter - Exam PHYSICAL EXAM: VITAL SIGNS: As above GENERAL: Sitting up in bed, pleasantly confused, eating breakfast HEENT: Conjunctivae normal. eyes normal. Tongue midline. No facial asymmetry. NECK: No JVD. No thyroid enlargement. CARDIOVASCULAR: S1, S2 regular.No murmur. RESPIRATION: Breath sounds diminished in the bases. No rhonchi or crackles. ABDOMEN: Soft, nontender . No guarding. no masses palpable. Bowel sounds heard. LEGS: No edema. no swelling. No calf tenderness PSYCHIATRY: Alert and oriented X2, confused NERVOUS SYSTEM: Cranial nerves II through XII grossly intact ,Moves all 4 limbs. Strength and sensation grossly intact. Skin: no rash, warm and dry - Labs CBC & Chem 7: 09/07/20 15:23 09/07/20 15:23 Labs: Abnormal Lab Results - Last 24 Hours (Table) 09/07/20 09/08/20 09/08/20 Range/Units 15:23 13:02 15:52 POC Glucose (mg/dL) 161 H (75-99) mg/dL Hemoglobin A1c 7.4 H (4.0-6.0) % Vitamin B12 1116.0 H (200.0-944.0) pg/mL Assessment and Plan Assessment: -Confusion, delirium, altered mental status,Acute metabolic encephalopathy accompanied by generalized weakness, etiology unclear. Dehydration, mild Diabetes mellitus II, hypoglycemia per EMS and family report Possible recurrent UTI, related to urinary retention, chronic Braswell catheter. Braswell catheter ordered to be changed. Hypertension, uncontrolled on admission Hyperlipidemia Dementia, type unclear, incontinent of urine and bowel movement. Plan: Continue on current medication regime ,monitoring and symptomatic treatment. Neuro workup in progress, MRI pending. Continue on aspirin, statin, PPI, gentle IV fluid hydration. PT/OT/social work consults in place. Prognosis guarded given multiple complex medical issues. Discharge planning in progress pending MRI results, final DC recommendations and clearance from neurology. The impression and plan of care has been dictated as directed. : I performed a history and examination of this patient, discussed the same with the dictator. I agree with the dictator's note ,documented as a scribe. Any additional findings or plans will be noted.
[2020-09-09 11:46] LABS: HCT 37.2 % (34.0-46.0); HGB 12.4 gm/dL (11.4-16.0); MCH 29.5 pg (25.0-35.0); MCHC 33.2 g/dL (31.0-37.0); MCV 88.7 fL (80.0-100.0); Mean Platelet Volume 7.7; Platelet Count 263 k/uL (150-450); RDW 12.9 % (11.5-15.5); WBC 8.1 k/uL (3.8-10.6)
[2020-09-09 11:55] LABS: African American GFR (CKD) >90 (>60 ml/min/1.73 sqM); Anion Gap 8 mmol/L; Blood Urea Nitrogen 18 mg/dL (7-17); Calcium 9.3 mg/dL (8.4-10.2); Carbon Dioxide 23 mmol/L (22-30); Chloride 103 mmol/L (98-107); Glucose 223 mg/dL (74-99); Non-African American GFR(CKD) 81 (>60 ml/min/1.73 sqM); Potassium 4.5 mmol/L (3.5-5.1); Sodium 134 mmol/L (137-145)
[2020-09-09 12:23] LABS: Glucose,Whole Blood 210 mg/dL (75-99)
[2020-09-09] MEDS: INSULIN ASPART (NovoLOG) 100 UNIT/ML VIAL SQ SCH ×3 (12:58→20:23)
--- NOTE | 2020-09-09 14:52 | MR ---
EXAMINATION TYPE: MR brain wo con DATE OF EXAM: 09/09/2020 COMPARISON: CT brain 09/07/20 HISTORY: Possible CVA, weakness CONTRAST: Performed utilizing 0 mL intravenous Gadavist gadolinium contrast. TECHNIQUE: Multiplanar, multiecho imaging on a 3.0 Marika magnet is performed through the brain. Stud y is performed within 24 hours of arrival to the hospital. The craniovertebral junction is normal. The pituitary is normal. Diffusion-weighted imaging is performed. No abnormal hyperintensity is present to suggest an acute i ntracranial infarct or acute ischemic change. There is confluent periventricular white matter hyperintensity, likely on the basis of chronic white matter ischemic changes. Ventricles and sulci are somewhat prominent for the patient age. IMPRESSIONS: 1. Atrophy with Chronic appearing periventricular white matter ischemic type changes.
--- NOTE | 2020-09-09 17:06 | P.PN ---
Subjective Progress Note Date: 09/09/20 Patient was seen for a follow-up. Patient offers no new complaints. No further strokes TIA or syncopal spell. Patient is laying comfortably in the bed. Patient denies headache. She states that she lives with her . She does not know why she came to the hospital. Objective - Vital Signs Vital signs: Vital Signs Temp 97.8 F 09/09/20 07:20 Pulse 86 09/09/20 08:00 Resp 14 09/09/20 08:00 BP 161/76 09/09/20 07:20 Pulse Ox 94 L 09/09/20 07:20 Intake & Output 09/08/20 09/09/20 09/09/20 18:59 06:59 18:59 Intake Total 500 Output Total 750 700 Balance -750 -200 Weight 56.699 kg Intake: Intake, IV Titration 400 Amount Sodium Chloride 0.9% 1, 400 000 ml @ 100 mls/hr IV . Q10H [facility] Rx#:[id number] Oral 100 Output: Urine 750 700 Other: Voiding Method Indwelling Catheter Indwelling Catheter Indwelling Catheter - Exam Patient's speech and language functions are normal. Patient was much more calm today. Less restless and delirious. Patient states it is May and the year is 1997. I double checked and asked the year again at the end of encounter and patient still said 1997. She knows that she is in [facility] in [place]. She states the president is next and but then when I gave her multiple choices, patient stated was Mr. Zaldivar. On cranial examination pupils are round and reacting, visual gipson are full, face is symmetric. Muscle strength appears normal. Tone and bulk of muscles normal. - Labs CBC & Chem 7: 09/09/20 11:16 09/09/20 11:16 Labs: Abnormal Lab Results - Last 24 Hours (Table) 09/07/20 09/08/20 09/08/20 Range/Units 15:23 13:02 15:52 Sodium (137-145) mmol/L BUN (7-17) mg/dL Glucose (74-99) mg/dL POC Glucose (mg/dL) 161 H (75-99) mg/dL Hemoglobin A1c 7.4 H (4.0-6.0) % Vitamin B12 1116.0 H (200.0-944.0) pg/mL 09/09/20 09/09/20 Range/Units 11:16 12:21 Sodium 134 L (137-145) mmol/L BUN 18 H (7-17) mg/dL Glucose 223 H (74-99) mg/dL POC Glucose (mg/dL) 210 H (75-99) mg/dL Hemoglobin A1c (4.0-6.0) % Vitamin B12 (200.0-944.0) pg/mL Assessment and Plan Assessment: * Altered mental status, generalized weakness, probably delirium. Patient probably has underlying cognitive impairment. * Hypoglycemia at the scene. * Possible UTI, on Rocephin. Urine cultures not checked. * Diabetes * Hypertension * Hyperlipidemia * Probable underlying cognitive impairment Plan: * MRI of the brain ruled out acute stroke. No acute process. There is atrophy with chronic appearing periventricular white matter ischemic type changes. * Lipid panel with cholesterol 147, LDL 69, HDL 46 and triglycerides 158. Continue statins. * Hemoglobin A1c 7.4. Target A1c <7.0, but avoid episodes of hypoglycemia. * Carotid Doppler revealed bilateral atherosclerotic plaque with no significant stenosis. Antegrade flow in both vertebral arteries. * 2-D echo showed normal left ventricular wall thickness. EF is 55-60%. Left atrium is mildly dilated. Mild aortic valve sclerosis. * Telemetry monitoring * B12 1116, folate 19.6, B1 pending, TSH normal 1.51. * Continue aspirin 162 mg and Lipitor 20 mg. * Patient on Rocephin for UTI. * Telemetry monitoring. * We will try to speak to patient's about her history of cognitive functions.
[2020-09-09 17:12] LABS: Glucose,Whole Blood 169 mg/dL (75-99)
[2020-09-09 20:15] LABS: Glucose,Whole Blood 134 mg/dL (75-99)
[2020-09-09 20:51] LABS: Glucose,Whole Blood 167 mg/dL (75-99)
[2020-09-09] MEDS ORDERED: INSULIN DETEMIR (LEVEMIR) 100 UNIT/ML SYR SQ SCH (21:00)
[2020-09-10 07:17] LABS: Glucose,Whole Blood 130 mg/dL (75-99)
[2020-09-10 07:46] VITALS: BP 147/70; PULSE 77; RESP 16; TEMP 99
[2020-09-10] MEDS ORDERED: ACETAMINOPHEN TAB 500 MG TAB PO SCH (09:00)
[2020-09-10] MEDS ORDERED: hydroCHLOROthiazide 25 MG TAB PO SCH (09:00)
--- NOTE | 2020-09-10 09:37 | P.DS ---
Providers Date of admission: 09/07/20 16:58 Expected date of discharge: 09/10/20 Attending physician: Frankie Freeman Consults: 09/07/20 16:56 Consult Physician Stat Consulting Provider: Justice Martínez Consult Reason/Comments: TIA Do you want consulting provider notified?: Yes Primary care physician: Frankie Freeman [facility] Course: Final Diagnoses: -Acute on Chronic metabolic encephalopathy,Confusion, delirium, altered mental status, increased generalized weakness,suspect related to early sepsis fron UTI, culture not obtained, as well as hypoglycemia Dehydration, mild Diabetes mellitus II, hypoglycemic at the scene per EMS, hemoglobin A1c 7.4. Diabetic regimen adjusted, currently controlled. Possible recurrent UTI, related to urinary retention, chronic Braswell catheter. Braswell catheter ordered to be changed. Hypertension, uncontrolled on admission Hyperlipidemia Dementia, type unclear, incontinent of urine and bowel movement. Hospital courseThis is an 85-year-old female with past medical history of diabetes mellitus, hypertension, hyperlipidemia, dementia, urinary retention with chronic Braswell catheter last changed August 2020-, UTI, arthritis and multiple other medical issues brought in by EMS with complaints of weakness nausea, vomiting, confusion. ER reports family stated a.m. blood sugar is 67, attempted to give patient frosting, difficulty sitting upright, complaining of frontal headache, milky emesis( possibly her protein drink). Patient did not recognize son. Complained of dizziness, Blood sugar was 60 (EMS), hypertensive with mild tachycardia,, O2 sat 95% on room air. Brain CT reported No acute intracranial abnormality. Chest x-ray reported no active cardiopulmonary disease. EKG normal sinus rhythm, incomplete right bundle branch block, left anterior fascicular block. Patient is a vague historian, alert and oriented to person only-reports she is at home. staff reports patient confused, crawling out of bed/stretcher during the night. Hematology, coagulation, chemistry panel is unremarkable with the exception of neutrophil 7.8, APTT 20.2, BUN 27, total protein 6.2. UA reported occasional yeast, many bacteria, 1 hyaline cast, small leukocytes negative bilirubin. Influenza A/B/covid not detected. Afebrile. 09/09/2020 UA reporting positive nitrate, urine culture ordered. Rocephin to be initiated empirically after culture is collected. 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 Sitting up in bed, eating breakfast, calm. Reports she is in the hospital, but doesn't know why she is here, recognizes Dr. Freeman. Evaluated by neurology with recommendations noted and appreciated. Neuro workup in progress including MRI. Denies chest pain, palpitations or shortness of breath. Afebrile, labs pending. Zyprexa prn added for increased anxiety, agitation. Denies lightheadedness, dizziness or focal deficits. Denies headache. Denies syncope. Adjusted diabetic regimen and blood sugars are well controlled. Maintained on Rocephin IV piggyback, unfortunately culture was not obtained. T-max 99. Carotid Doppler reported no significant hemodynamic stenosis, 2-D echo reported normal LV function, EF 55-60%. Brain MRI reported atrophy with chronic appearing periventricular white matter ischemic type changes. Evaluated by PT with subacute rehab recommended at discharge. Patient will be discharged to subacute rehab in a stable condition with guarded prognosis, pending final DC recommendations and clearance from neurology, insurance authorization for placement. The impression and plan of care has been dictated as directed. : I performed a history and examination of this patient, discussed the same with the dictator. I agree with the dictator's note ,documented as a scribe. Any additional findings or plans will be noted. Patient Condition at Discharge: Stable Plan - Discharge Summary Discharge Rx Participant: No New Discharge Prescriptions: New Cefuroxime Axetil [Ceftin] 500 mg PO BID 1 Days #8 tab Insulin Detemir (Levemir) [Levemir] 10 unit SQ DAILY@0700 syr Insulin Detemir (Levemir) [Levemir] 5 unit SQ HS syr QUEtiapine [SEROquel] 25 mg PO HS #1 tab INSULIN LISPRO (HumaLOG) [humaLOG] 0 unit SQ ACHS #1 vial Acetaminophen Tab [Tylenol] 650 mg PO Q6HR PRN tab PRN Reason: Mild Pain Or Fever > 100.5 Continue Indapamide [Lozol] 2.5 mg PO MOWEFR Celecoxib 200 mg PO DAILY Aspirin EC [Ecotrin Low Dose] 81 mg PO DAILY Raloxifene HCl 60 mg PO DAILY Metoprolol Tartrate 50 mg PO BID Simvastatin 40 mg PO DAILY amLODIPine [Norvasc] 5 mg PO DAILY Discontinued glipiZIDE [Glipizide Xl] 10 mg PO BID Insulin Detemir [Levemir Flextouch] 20 units SQ DAILY metFORMIN HCL [Metformin HCl ER] 1,500 mg PO W/SUPPER Acetaminophen [Tylenol Extra Strength] 500 mg PO DAILY Discharge Medication List Aspirin EC [Ecotrin Low Dose] 81 mg PO DAILY 01/07/16 [History] Celecoxib 200 mg PO DAILY 01/07/16 [History] Indapamide [Lozol] 2.5 mg PO MOWEFR 01/07/16 [History] Metoprolol Tartrate 50 mg PO BID 01/07/16 [History] Raloxifene HCl 60 mg PO DAILY 01/07/16 [History] Simvastatin 40 mg PO DAILY 01/07/16 [History] amLODIPine [Norvasc] 5 mg PO DAILY 09/07/20 [History] Acetaminophen Tab [Tylenol] 650 mg PO Q6HR PRN tab 09/09/20 [Rx] Cefuroxime Axetil [Ceftin] 500 mg PO BID 1 Days #8 tab 09/09/20 [Rx] INSULIN LISPRO (HumaLOG) [humaLOG] 0 unit SQ ACHS #1 vial 09/09/20 [Rx] Insulin Detemir (Levemir) [Levemir] 5 unit SQ HS syr 09/09/20 [Rx] Insulin Detemir (Levemir) [Levemir] 10 unit SQ DAILY@0700 syr 09/09/20 [Rx] QUEtiapine [SEROquel] 25 mg PO HS #1 tab 09/09/20 [Rx] Follow up Appointment(s)/Referral(s): Frankie Freeman DO [Primary Care Provider] - 1 Week (After DC from subacute rehab) Activity/Diet/Wound Care/Special Instructions: ecf: Auth pending cbc,bmp in 3 days Diet: consist. carb Discharge Disposition: TRANSFER TO SNF/ECF
[2020-09-10] MEDS: INSULIN ASPART (NovoLOG) 100 UNIT/ML VIAL SQ SCH ×2 (09:46→13:00)
[2020-09-10] MEDS: SODIUM CHLORIDE 0.9% 1,000 ML IV SCH (09:51)
[2020-09-10] MEDS: PANTOPRAZOLE 40 MG/10 ML VIAL IVP SCH (09:52)
[2020-09-10] MEDS: ASPIRIN 81 MG PO SCH (09:52)
[2020-09-10] MEDS: METOPROLOL TARTRATE 50 MG TAB PO SCH (09:52)
[2020-09-10] MEDS: ATORVASTATIN 20 MG TAB PO SCH (09:55)
[2020-09-10] MEDS: INSULIN DETEMIR (LEVEMIR) 100 UNIT/ML SYR SQ SCH (09:56)
[2020-09-10 11:42] LABS: Glucose,Whole Blood 262 mg/dL (75-99)
--- NOTE | 2020-09-10 15:33 | P.PN ---
Subjective Progress Note Date: 09/10/20 Patient was seen for a follow-up. Patient's was present. Patient offers no new complaints. No further strokes TIA or syncopal spell. Patient is laying comfortably in the bed. Patient denies headache. She states that she lives with her . She does not know why she came to the hospital. Objective - Vital Signs Vital signs: Vital Signs Temp 99.0 F 09/10/20 07:00 Pulse 77 09/10/20 07:00 Resp 16 09/10/20 08:00 BP 147/70 09/10/20 07:00 Pulse Ox 95 09/10/20 07:00 Intake & Output 09/09/20 09/10/20 09/10/20 18:59 06:59 18:59 Output Total 950 Balance -950 Output: Urine 950 Other: Voiding Method Indwelling Catheter Indwelling Catheter Indwelling Catheter # Voids 2 - Exam Patient's speech and language functions are normal. Patient is calm and comfortable. Denies headache. Patient states it is 04/19/1923 patient states it is fall season. She says that she lives in the [facility]. She thinks at this time she is in [place]. She thinks Mr. Ruiz is the president. On cranial examination pupils are round and reacting, visual gipson are full, face is symmetric. Muscle strength appears normal except bilateral shoulder which are weak from arthritis. No ataxia for [id number] testing. Tone and bulk of muscles normal. - Labs CBC & Chem 7: 09/09/20 11:16 09/09/20 11:16 Labs: Abnormal Lab Results - Last 24 Hours (Table) 09/09/20 09/09/20 09/09/20 Range/Units 17:11 20:14 20:50 POC Glucose (mg/dL) 169 H 134 H 167 H (75-99) mg/dL 09/10/20 09/10/20 Range/Units 07:15 11:40 POC Glucose (mg/dL) 130 H 262 H (75-99) mg/dL Assessment and Plan Assessment: * Altered mental status, generalized weakness, probably delirium. * Probable underlying Alzheimer's dementia. * Hypoglycemia at the scene. * Possible UTI, on Rocephin. Urine cultures not checked. * Diabetes * Hypertension * Hyperlipidemia Plan: * I spoke to patient's daughter on the phone. She stated that for the last several years, patient daughter has been concerned about her memory. Patient will remember part of the events and the rest she will fill out with some information, that is not true. Her physicians have never came up with a diagnosis of dementia. Patient does not forget people. Some facts she compensates by making up the rest. Lately she has been more withdrawn, not participating with activities in the adventism, and she prefers staying home in the chair watching same channel on the TV over and over. Recently one time patient could not recognize her own son. Patient at times does not know what city she lives in. Patient's daughter is very concerned about her safety issues. Patient lives with her , and one day she went in and saw patient and her were on the stairs, and him trying to put her pants on. Both of them could have fall. * Patient probably has Alzheimer's dementia. We will start Aricept 5 mg daily. After 1 month, the dose can be increased to 10 mg. Recommend patient follow up with neurologist outpatient in 3-4 weeks. Patient's daughter is interested in moving patient to a rehab facility at this time. * MRI of the brain ruled out acute stroke. No acute process. There is atrophy with chronic appearing periventricular white matter ischemic type changes. * Lipid panel with cholesterol 147, LDL 69, HDL 46 and triglycerides 158. Continue statins. * Hemoglobin A1c 7.4. Target A1c <7.0, but avoid episodes of hypoglycemia. * Carotid Doppler revealed bilateral atherosclerotic plaque with no significant stenosis. Antegrade flow in both vertebral arteries. * 2-D echo showed normal left ventricular wall thickness. EF is 55-60%. Left atrium is mildly dilated. Mild aortic valve sclerosis. * Telemetry monitoring shows no arrhythmia. * B12 1116, folate 19.6, B1 pending, TSH normal 1.51. * Continue aspirin 162 mg and Lipitor 20 mg. * Patient on Rocephin for UTI.
[2020-09-10] MEDS ORDERED: DONEPEZIL 5 MG TAB PO SCH (21:00)
== END 2020-09-10 14:45 ==
LOC: EC 14:32 → 6NMEDSUR 16:58
PROVIDERS: ADMIT Family Medicine; ATTEND Family Medicine
DX: G93.41 Metabolic encephalopathy (principal); E11.649 Type 2 diabetes mellitus with hypoglycemia without coma; E86.0 Dehydration; I10 Essential (primary) hypertension; E78.5 Hyperlipidemia, unspecified; R32 Unspecified urinary incontinence; R33.9 Retention of urine, unspecified; F03.90 Unspecified dementia, unspecified severity, without behavioral disturbance, psychotic disturbance, mood disturbance, and anxiety; I67.82 Cerebral ischemia; I45.2 Bifascicular block; R15.9 Full incontinence of feces; M19.90 Unspecified osteoarthritis, unspecified site; F41.9 Anxiety disorder, unspecified; I35.8 Other nonrheumatic aortic valve disorders; Z20.822 Contact with and (suspected) exposure to COVID-19; Z79.82 Long term (current) use of aspirin; Z79.1 Long term (current) use of non-steroidal anti-inflammatories (NSAID); Z79.4 Long term (current) use of insulin; Z79.899 Other long term (current) drug therapy; Z88.8 Allergy status to other drugs, medicaments and biological substances; Z96.0 Presence of urogenital implants; Z86.14 Personal history of Methicillin resistant Staphylococcus aureus infection; Z90.710 Acquired absence of both cervix and uterus; Z98.890 Other specified postprocedural states; Z87.440 Personal history of urinary (tract) infections; Z82.3 Family history of stroke
CPT/HCPCS: 96376 ×2; 96361 ×3; 96365; 96366; 96375; 99285; 36415; 93005; 93306; 97116; 97530 ×2; 97162; 97166; 84425; 80053; 80048; 84443; 82607; 82746; 83605; 84484; 85025; 85027; 85610; 85730; 81001; 83036; 87636; 71046; 93880; 70450; 70551; G0378 ×4; J2060; J0696; C9113 ×3